=== PATIENT | male | born 1995 | race Caucasian/White ===

== ENCOUNTER 2020-01-07 09:43 | Emergency (ER) | payer SELFPAY ==
[~2020-01-07] VITALS: Ht 180.3 cm; Wt 82.0 kg
--- NOTE | 2020-01-07 10:05 | NUR ---
LAT ENTRY: PT WAS BIB EMS FOR SI ON LEGAL HOLD PLACED BY [employer]. PT CALLED 911 AND SAID "I NEED TO GO TO [facility]. IM IN VIOLATION OF MY PAROLE AND PROBATION." [employer] ARRIVED TO PTS APARTMENT AND FOUDN THE PT HAD NOT OUTSTANDING WARRANTS AND WAS NOT ON PAROLE. BUT PT TOLD POLICE "I WANT TO DRINK MYSELF TO ". EMS REPORTS THAT THE APARTMENT WAS COVERED IN ALCOHOL BOTTLES AND WAS UNKEPT. PT THEN BECAME COMBATIVE WITH [employer] AND EMS. AND WAS PLACED IN 4PT RESTRAINTS AND GIVEN 5MG HALDOL IM AT [facility] [employer]. PT ARRIVED TO ER IN 4 POINT RESTRAINTS AND WAS SCREAMING, ANXIOUS, COMBATIVE, HOSTIKLE. PT STATED "I SMELL LIKE DISTERLLY . FUCK YOU. KEEP TALKING SHIT." PT REFUSED TO ANSWER SCREENING QUESTIONS IN REFERENCE TO DRUGS. PT DID SAY " I WISH TO BE ". PT PLACED IN 4 PT RESTRAINTS. PLACED ON HEART MONITOR AND PULSE OX
--- NOTE | 2020-01-07 10:28 | NUR ---
2 RESTRAINTS REMOVED. PT IN 2 PT RESTRAINTS AT THIS TIME. PT PLACED ON 2 LITERS O2 VIA NC. PT STILL CONNECTED TO HEART MONITOR AND PULSE OX. NO DISTRESS. PT IS RESTING IN GURNEY WITH HIS EYES CLOSED THERE IS EQUAL CHEST AND RISE AND FALL WITH EACH BREATH AND THERE IS NAD NOTED. VSS. RESTRAINT PAPERWORK SIGNED BY DOC AND IS BEING FILLED OUT APPROPRIATLEY.
[2020-01-07 10:34] LABS: BASOPHILS % (AUTO) 0 % (0-1); EOSINOPHILS % (AUTO) 1 % (1-7); LYMPHOCYTES % (AUTO) 25 % (22-44); MEAN CORPUSCULAR HEMOGLOBIN 30.4 pg (27.5-34.5); MEAN CORPUSCULAR HGB CONC 34.2 g/dL (33.2-36.2); MEAN PLATELET VOLUME 6.8 fL (7.4-10.4); MONOCYTES % (AUTO) 5 % (2-9); NEUTROPHILS % (AUTO) 70 % (42-75); PLATELET COUNT 363 x10^3/uL (130-400); RED BLOOD COUNT 5.46 x10^6/uL (4.38-5.82); RED CELL DISTRIBUTION WIDTH 14.5 % (9.4-14.8)
[2020-01-07 10:35] LABS: MD NO
--- NOTE | 2020-01-07 10:35 | NUR ---
RESTRAINTS DISCONTINUED. PT RESTING COMFORTABLY IN [facility]. CONNECTED TO PUSLE OX AND HEART MONITOR. THERE IS A 1 TO 1 SITTER OUTSIDE OF ROOM FOR PT SAFETY.
[2020-01-07 10:36] LABS: ALBUMIN 4.2 g/dL (3.4-5.0); ANION GAP 12 mmol/L (5-15); CALCIUM 8.8 mg/dL (8.5-10.1); CHLORIDE 108 mmol/L (98-107)
[2020-01-07 10:45] LABS: ALANINE AMINOTRANSFERASE 35 U/L (12-78); ALKALINE PHOSPHATASE 83 U/L (45-117); BILIRUBIN,TOTAL 0.8 mg/dL (0.2-1.0); CREATININE 0.77 mg/dL (0.7-1.3)
[2020-01-07 10:46] LABS: SALICYLATE LEVEL < 1.7 mg/dL (2.8-20.0)
[2020-01-07 11:25] VITALS: BP 118/67
--- NOTE | 2020-01-07 11:26 | NUR ---
PT RESTING IN [facility]. NAD. VSS. PSA OUTSIDE OF ROOM FOR MONITORING.
--- NOTE | 2020-01-07 11:55 | NUR ---
PT BELONGINGS PLACED IN SI SECURED LOCKER. PT HAD SHORTS, SHIRT, SHOES, CELL PHONE
--- NOTE | 2020-01-07 13:26 | NUR ---
REPORT FROM IFTIKHAR AKINS, PT RESTING IN [facility] WITH SITTER AT BEDSIDE. REEVAL WHEN AWAKE/SOBER. MEAL TRAY ORDERED
--- NOTE | 2020-01-07 13:29 | NUR ---
PT RECEIVED HALDOL 5MG IM FROM EMS
--- NOTE | 2020-01-07 15:13 | NUR ---
PT AWAKE NOW, GIVEN LUNCH TRAY. SITTER AT BEDSIDE.
--- NOTE | 2020-01-07 16:26 | NUR ---
PT STILL UNABLE TO PROVIDE URINE SAMPLE. PT SLEEPING IN [place], URINAL AT BEDSIDE. SITTER AT DOORWAY
--- NOTE | 2020-01-07 17:29 | NUR ---
pt given pizza by MIGUEL Oneal pt to be discharged
[2020-01-07 18:14] LABS: AMPHETAMINE SCREEN, URINE Negative (Negative); BARBITURATE SCREEN, URINE Negative (Negative); BENZODIAZEPINE SCREEN, URINE Negative (Negative); CANNABINOID SCREEN, URINE Positive (Negative); COCAINE SCREEN, URINE Negative (Negative); METHADONE SCREEN, URINE Negative (Negative); OPIATE SCREEN, URINE Negative (Negative)
== END 2020-01-07 18:43 | disposition home or self-care (01) ==
LOC: ED 18:37
DX: F10.229 Alcohol dependence with intoxication, unspecified (principal); G31.2 Degeneration of nervous system due to alcohol; Y90.0 Blood alcohol level of less than 20 mg/100 ml
CPT/HCPCS: 36415; 80053; 80307; 85025; 99283